=== PATIENT | female | born 1995 | race Two or more races ===

== ENCOUNTER 2023-04-04 03:21 | Emergency (ER) | payer MEDICAID ==
[~2023-04-04] VITALS: Ht 157.5 cm; Wt 59.1 kg
[2023-04-04 04:19] VITALS: PULSE 69; RESP 13; O2SAT 96
[2023-04-04] MEDS ORDERED: fentaNYL CITRATE 100 MCG/2 ML VL IV ONE (04:30)
[2023-04-04] MEDS ORDERED: ONDANSETRON HCL 4 MG/2 ML VIAL IV ONE ×3 (04:30→07:00)
[2023-04-04] MEDS ORDERED: PROPOFOL 10 MG/ML 20 ML IV ONE (05:00)
[2023-04-04] MEDS ORDERED: MORPHINE SULFATE 4 MG/ML SYR/VIAL IV ONE ×2 (05:45→07:00)
[2023-04-04] MEDS ORDERED: HYDR-4902 PO ×2 (07:32)
[2023-04-04 07:51] VITALS: PULSE 77; RESP 17; O2SAT 99
[2023-04-04] MEDS ORDERED: ETOMIDATE (2MG/ML) 20ML VIAL IV ONE (08:15)
[2023-04-04] MEDS ORDERED: cefTRIAXone 1GM/50ML D5W 50 ML IV ONE ×2 (09:42→09:45)
[2023-04-04] MEDS: ONDANSETRON HCL 4 MG/2 ML VIAL IV ONE ×2 (09:58→10:54)
[2023-04-04 12:50] VITALS: BP 127/67; PULSE 56; RESP 20; TEMP 97.9; O2SAT 96
== END 2023-04-04 13:23 | disposition short-term general hospital (02) ==
LOC: EDBD 03:21 → ER 03:21
DX: S52.611A Displaced fracture of right ulna styloid process, initial encounter for closed fracture (principal); S52.501A Unspecified fracture of the lower end of right radius, initial encounter for closed fracture; Z88.0 Allergy status to penicillin; W18.39XA Other fall on same level, initial encounter; Y93.89 Activity, other specified; Y92.89 Other specified places as the place of occurrence of the external cause; Y99.8 Other external cause status
CPT/HCPCS: 25605; 73090; 96365; 96375; 96376; 99285; J0696; J2270; J2405; J3010